=== PATIENT | female | born 1970 | race Caucasian/White ===

== ENCOUNTER → 2019-11-15 13:22 | Outpatient (CLI) | payer OTHER, SELFPAY ==
--- NOTE | ~2019-11-15 | MM_ITS ---
EXAMINATION: MM screening mg BI w jung HISTORY: Screening mammogram TECHNIQUE: Craniocaudal and mediolateral oblique 3-D tomosynthesis images were obtained and synthetic 2-D images were generated. CAD analysis was submitted and interpreted. COMPARISON: No prior mammogram is available for comparison at this institution. BREAST PARENCHYMAL COMPOSITION: The breasts are heterogeneously dense, which may obscure small masses . FINDINGS: There is no evidence of suspicious mass, calcification, or architectural distortion to sugg est malignancy in either breast. 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 IMPRESSION: 1. No mammographic evidence of malignancy. 2. Recommend routine screening mammography in one year. BI-RADS Category 2: Benign finding(s). Reviewed, dictated and finalized at location A. 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
--- NOTE | ~2019-11-15 | DEXA_ITS ---
Bone Density Report Name: Junior Smalls Age: 49 Sex: Female Ethnicity: White Date of : 1970 Indication: postmenopausal; screening for osteoporosis; hysterectomy; Referring Provider: SHREYAZACK Study: Bone densitometry was performed. Exam Date: November 15, 2019 Accession number: [id number] Bone Density: Region BMD T-score Z-score Classification AP Spine (L1-L4) 1.194 1.3 2.1 Normal Femoral Neck (Left) 0.893 0.4 1.2 Normal Total Hip (Left) 1.094 1.2 1.7 Normal Femoral Neck (Right) 0.991 1.3 2.1 Normal Total Hip (Right) 1.079 1.1 1.6 Normal Total Hip Mean 1.087 1.2 1.7 Normal World Health Organization criteria for BMD impression classify patients as: Normal (T-score at or above -1.0), Osteopenia (T-score between -1.0 and -2.5), or Osteoporosis (T-score at or below -2.5). 10-year Fracture Risk: FRAX not reported because: All T-scores for Spine Total, Hip Total, Femoral Neck at or above -1.0 Clinical Information Provided by Patient: Has the following medical conditions: Hysterectomy Patient maximum height was 59.5 Menopause Age: 41 No regular weight bearing exercise Drinks caffeinated beverages Onset of menses at age 11 Number of children 2 Impression: The patient has normal bone mass. Discussion: BONE DENSITY IS ABOVE THE MINIMUM DESIRABLE LEVEL AT ALL SKELETAL SITES TESTED. This patient?s bone mineral density is above the minimum desirable level (T-score -1.0 or better) at all sites measured. The patient should follow a healthful lifestyle (good nutrition with adequate calcium and vitamin D, and appropriate weight-bearing exercise). Follow-Up: Consider repeating this study in 5 years or sooner if there is some new clinical indication. Reported by: [facility] on 11/15/2019 1:56:00 PM. Reviewed, dictated and finalized at location AAnna [facility]
== END ==
PROVIDERS: PCP Nurse Practitioner Adult Health; Visit Provider Nurse Practitioner Adult Health
DX: Z12.31 Encounter for screening mammogram for malignant neoplasm of breast (principal); Z13.820 Encounter for screening for osteoporosis; Z78.0 Asymptomatic menopausal state; Z90.710 Acquired absence of both cervix and uterus
CPT/HCPCS: 77063; 77067; 77080

== ENCOUNTER 2023-02-28 09:21 | Emergency (ER) | payer OTHER, SELFPAY ==
[2023-02-28 09:32] VITALS: BP 132/70; PULSE 66; RESP 16; TEMP 37.3; O2SAT 97
--- NOTE | 2023-02-28 09:57 | ED.URI ---
HPI - URI/Sore Throat General Chief Complaint: Upper Respiratory Infection Stated Complaint: headache; sinus pressure; cough; sore throat Time Seen by Provider: 02/28/23 10:33 Source: patient and RN notes reviewed Mode of arrival: ambulatory Limitations: no limitations History of Present Illness HPI Narrative: 53-year-old female presents with concern for 5 day history of productive persistent cough, ear pain, facial pain, teeth pain, rib pain from coughing. Reports she has been taking Mucinex and Robitussin. Reports room chest and called the cough down little bit. MD elicited complaint: cough and sinus pain Related Data Home Medications Medication Instructions Recorded Confirmed cetirizine 10 mg tablet 10 mg PO DAILY 10/23/22 01/22/23 escitalopram oxalate 20 mg tablet 20 mg PO DAILY 10/23/22 01/22/23 Allergies Allergy/AdvReac Type Severity Reaction Status Date / Time No Known Allergies Allergy Verified 02/28/23 10:03 Review of Systems Review of Systems: CONSTITUTIONAL: Denies malaise, chills, sweats, or fever. EYES: Denies visual changes, redness, or discharge. ENT: Reports rhinorrhea, congestion, sinus pain, otalgia CARDIOVASCULAR: Denies chest pain, palpitations, or edema. RESPIRATORY: Reports persistent productive cough. Denies dyspnea. GASTROINTESTINAL: Denies abdominal pain, nausea, vomiting, diarrhea SKIN: Denies rash or itching. MUSCULOSKELETAL: Denies myalgia. Reports rib pain from coughing NEUROLOGIC: Denies headache. All systems reviewed & are unremarkable except as noted in HPI and below PMFSH Past Medical History Medical History Allergies Anxiety delivery delivered Irritable bowel syndrome with constipation Lichen planus Obstructive sleep apnea on CPAP Surgical History Surgical History Hx of hysterectomy (~2010) Family History Family History Father Alcohol abuse Diabetes mellitus Hypertension Cerebrovascular accident Mother Diabetes mellitus Skin cancer Sibling Alcohol abuse Asthma Diabetes mellitus Hypertension Grandparent Breast cancer Social History Social History Social History: Junior is . 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 There is no relevant family history pertinent to the presenting complaint Exam Narrative: GENERAL: Nontoxic-appearing and in no acute distress. HEAD: Normocephalic EYES: PERRLA, conjunctivae clear ENT: Nares clear, turbinates edematous and erythematous, sinus tenderness. Mucous membranes moist. Left tM pearly luevano with dull light reflex, right TM erythematous; no tragal tenderness. Oropharynx not erythematous without lesions. Tonsils not enlarged and without exudate, no drooling, no hoarseness, no trismus, uvula midline. NECK: Supple. No lymphadenopathy CHEST: Scattered wheeze, otherwise clear to auscultation, br
== END 2023-02-28 10:43 | disposition home or self-care (01) ==
PROVIDERS: Emergency Provider Nurse Practitioner; PCP Family Medicine
DX: H66.90 Otitis media, unspecified, unspecified ear (principal); J40 Bronchitis, not specified as acute or chronic
CPT/HCPCS: 99213; G0463

== ENCOUNTER 2023-03-03 14:45 | Outpatient (RCR) | payer OTHER, SELFPAY ==
[2023-02-03 10:58] VITALS: BMI 50.0
[2023-03-03 14:45] VITALS: BMI 49.2
[2023-03-03 14:51] VITALS: BMI 49.2
== END 2023-05-03 10:25 | disposition home or self-care (01) ==
LOC: ANHDMC 14:45
PROVIDERS: PCP Family Medicine; Visit Provider Nurse Practitioner Family
DX: Z68.43 Body mass index [BMI] 50.0-59.9, adult (principal); Z71.3 Dietary counseling and surveillance
CPT/HCPCS: 97802; 97803

== ENCOUNTER 2024-08-04 09:11 | Outpatient (CLI) | payer OTHER, SELFPAY ==
[2024-08-07 10:36] LABS: Kit Draw Collected
== END 2024-08-04 09:12 | disposition home or self-care (01) ==
LOC: ANHGOSHLAB 09:12
PROVIDERS: PCP Nurse Practitioner Family; Visit Provider Nurse Practitioner Family
DX: T78.40XA Allergy, unspecified, initial encounter (principal); E88.810 Metabolic syndrome; M45.9 Ankylosing spondylitis of unspecified sites in spine; L43.9 Lichen planus, unspecified; K58.1 Irritable bowel syndrome with constipation
CPT/HCPCS: 36415

== ENCOUNTER 2024-09-25 00:17 | Day surgery (SDC) | payer OTHER, SELFPAY ==
[2024-09-11 10:53] VITALS: BMI 43.0
--- NOTE | 2024-09-25 08:18 | P.PNAN_ITS ---
Anes - Initial Pre Proc Eval Procedure: Operation Date: 09/25/24 10:00 Proposed Procedures p Screening Colonoscopy - Hudson Schroeder DO Date/Time: 09/25/24 08:18 Surgeon: Hudson Schroeder DO Pre Op Diagnosis: Screening for malignant neoplasm of colon Patient Data Age: 54 Gender: F Height: 1.52 m Weight: 99.8 kg Allergies Allergy/AdvReac Type Severity Reaction Status Date / Time No Known Allergies Allergy Verified 09/25/24 08:43 Home Medications ?Medication ?Instructions ?Recorded ?Confirmed ?Type cetirizine 10 mg tablet 10 mg PO DAILY PRN allergy symptoms 10/23/22 09/25/24 History fluticasone propionate 50 1 spray intranasal DAILY #16 grams 07/23/23 09/25/24 Rx mcg/actuation nasal spray,suspension (Flonase Allergy Relief) levothyroxine 50 mcg tablet 50 mcg PO DAILY #30 tabs 07/23/23 09/25/24 Rx albuterol sulfate 90 mcg/actuation 2 puff inhalation QID PRN 07/27/23 09/11/24 Rx aerosol inhaler shortness of breath or wheezing #8.5 grams conjugated estrogens 0.625 mg/gram 0.625 mg vaginal 2XW #30 grams 01/28/24 09/11/24 Rx vaginal cream cyclobenzaprine 5 mg tablet 5 mg PO DAILY 01/28/24 09/11/24 History melatonin 3 mg capsule 6 mg PO QHS 01/28/24 09/25/24 History wkhuqvvy-ajk-lrybv ac 400 1 tablet PO DAILY 01/28/24 09/25/24 History mcg-calcium carb 500 mg-vit K1 20 mcg tablet escitalopram oxalate 20 mg tablet 20 mg PO DAILY #90 tabs 04/06/24 09/25/24 Rx oxybutynin chloride 5 mg 5 mg PO DAILY #90 tabs 05/01/24 09/25/24 Rx tablet,extended release 24 hr diclofenac sodium 75 mg 75 mg PO BID #180 tabs 07/31/24 09/25/24 Rx tablet,delayed release omeprazole 40 mg capsule,delayed 40 mg PO DAILY #90 caps 07/31/24 09/25/24 Rx release alprazolam 0.25 mg tablet 0.25 mg PO TID PRN anxiety #20 tabs 08/04/24 09/25/24 Rx semaglutide 1 mg/dose (4 mg/3 mL) 1.75 mg subcut WEEKLY 09/11/24 09/11/24 History subcutaneous pen injector (Ozempic) Patient hx anesthesia problems: none Family hx anesthesia problems: none Results Review: All pre-operative results and documents have been reviewed as part of the pre- operative evaluation. [facility] Past Medical History Medical History (Updated 09/25/24 @ 08:19 by Blaze Novak DO) Insulin resistance Lichen planus Irritable bowel syndrome with constipation Obstructive sleep apnea on CPAP delivery delivered Anxiety Allergies Surgical History Surgical History Hx of hysterectomy (~2010) Family History Family History Father Alcohol abuse Diabetes mellitus Hypertension Cerebrovascular accident Mother Diabetes mellitus Skin cancer Sibling Alcohol abuse Asthma Diabetes mellitus Hypertension Grandparent Breast cancer Social History Social History Social History: Junior is . 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 Smoking status: Never smoker Alcohol intake: never Substance use: never Substance use type: does not use Do You Feel Safe in your Home?: Yes Lack of Transportation: No Lack of Food: Never True Current Housing: I Have Housing Concerned About Future Housing: No Difficulty Paying Gas/Electric Bills: No Difficulty Paying for Meds: No Currently Unemployed: No Education: Associate Degree Difficulty w/ Childcare or Family Care: No Living arrangements: with family Additional living arrangements comments: Occupation/Education: occupation Additional occupation/education comments: [employer] Gender identity (if verbalized by the patient): Female Sexual Orientation (if Verbalized by the Patient): Straight or Heterosexual Spiritual care concerns: No Agree to blood products: Yes Anes - Eval Final PreProcedure Day of Procedure 09/25/24 08:18 Patient weight: morbidly obese Heart: regular rate and rhythm Lungs: clear to auscultation Airway: Mallampati scale class II Neurological: alert and oriented Last oral intake: >/= 8 hours ASA classification: III Emergent: no Anesthetic plan: proceed Anesthesia type and monitoring: general GIVS and standard monitoring Results Review: All pre-operative results and documents have been reviewed as part of the pre- operative evaluation. Informed Consent: The patient's anesthetic plan and its attendant risks and benefits were discussed with the patient/family/POA. Questions were solicited and answers provided to the satisfaction of the patient/family/POA.
[2024-09-25 08:46] VITALS: BP 132/82; PULSE 76; RESP 16; TEMP 35.6; O2SAT 97
[2024-09-25] MEDS: LACTATED RINGERS 1,000 ML 150 ML IV CONT (09:23)
--- NOTE | 2024-09-25 09:37 | PM.IMHP ---
H&P: HPI History of Present Illness Date/Time: 09/25/24 09:37 Chief Complaint: screening for colorectal cancer Narrative: this is a 54-year-old woman who presents for colonoscopy. Her last colonoscopy was 10 years ago. She denies any hematochezia or melena. She denies family history of colon cancer. Review of Systems Review of Systems: All systems reviewed & are unremarkable except as noted in HPI and below Constitutional: Constitutional: Denies chills, Denies fever(s), Denies headache(s) and Denies weight loss Eyes: Eyes: Denies change in vision ENT: Denies dizziness, Denies headache(s), Denies neck mass and Denies throat swelling Cardiovascular: Cardiovascular: Denies chest pain, Denies lightheadedness and Denies dyspnea Respiratory: Respiratory: Denies cough, Denies dyspnea and Denies wheezing Gastrointestinal: Gastrointestinal: Denies abdominal pain, Denies change in bowel habits, Denies nausea and Denies vomiting Genitourinary: Genitourinary: Denies hematuria and Denies dysuria Musculoskeletal: Musculoskeletal: Reports as per HPI Integumentary/Breasts: Skin/Breast: Reports as per HPI Neurologic: Denies dizziness and Denies headache(s) Allergic/Immunologic: Allergic/Immunologic: Denies throat swelling and Denies wheezing [facility] Past Medical History Medical History (Updated 09/25/24 @ 09:38 by Hudson Schroeder DO) Insulin resistance Lichen planus Irritable bowel syndrome with constipation Obstructive sleep apnea on CPAP delivery delivered Anxiety Allergies Surgical History Surgical History Hx of hysterectomy (~2010) Family History Family History Father Alcohol abuse Diabetes mellitus Hypertension Cerebrovascular accident Mother Diabetes mellitus Skin cancer Sibling Alcohol abuse Asthma Diabetes mellitus Hypertension Grandparent Breast cancer Social History Social History Social History: Junior is . 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 Gender identity (if verbalized by the patient): Female Sexual Orientation (if Verbalized by the Patient): Straight or Heterosexual Spiritual care concerns: No Agree to blood products: Yes Meds Home Medications and Allergies Home Medications ?Medication ?Instructions ?Recorded ?Confirmed ?Type cetirizine 10 mg tablet 10 mg PO DAILY PRN allergy symptoms 10/23/22 09/25/24 History fluticasone propionate 50 1 spray intranasal DAILY #16 grams 07/23/23 09/25/24 Rx mcg/actuation nasal spray,suspension (Flonase Allergy Relief) levothyroxine 50 mcg tablet 50 mcg PO DAILY #30 tabs 07/23/23 09/25/24 Rx albuterol sulfate 90 mcg/actuation 2 puff inhalation QID PRN 07/27/23 09/11/24 Rx aerosol inhaler shortness of breath or wheezing #8.5 grams conjugated estrogens 0.625 mg/gram 0.625 mg vaginal 2XW #30 grams 01/28/24 09/11/24 Rx vaginal cream cyclobenzaprine 5 mg tablet 5 mg PO DAILY 01/28/24 09/11/24 History melatonin 3 mg capsule 6 mg PO QHS 01/28/24 09/25/24 History zaegjmyo-jqt-obpkn ac 400 1 tablet PO DAILY 01/28/24 09/25/24 History mcg-calcium carb 500 mg-vit K1 20 mcg tablet escitalopram oxalate 20 mg tablet 20 mg PO DAILY #90 tabs 04/06/24 09/25/24 Rx oxybutynin chloride 5 mg 5 mg PO DAILY #90 tabs 05/01/24 09/25/24 Rx tablet,extended release 24 hr diclofenac sodium 75 mg 75 mg PO BID #180 tabs 07/31/24 09/25/24 Rx tablet,delayed release omeprazole 40 mg capsule,delayed 40 mg PO DAILY #90 caps 07/31/24 09/25/24 Rx release alprazolam 0.25 mg tablet 0.25 mg PO TID PRN anxiety #20 tabs 08/04/24 09/25/24 Rx semaglutide 1 mg/dose (4 mg/3 mL) 1.75 mg subcut WEEKLY 09/11/24 09/11/24 History subcutaneous pen injector (Ozempic) Allergies Allergy/AdvReac Type Severity Reaction Status Date / Time No Known Allergies Allergy Verified 09/25/24 08:43 Vital Signs Vital Signs - 24 hr 09/25/24 08:46 Temperature 96.1 F L Pulse Rate 76 Respiratory Rate 16 Blood Pressure 132/82 Pulse Oximetry 97 Oxygen Delivery Room Air Exam Const: General: no acute distress and alert Orientation/consciousness: patient oriented x3 HENMT: Head: normocephalic and atraumatic Ears: hearing grossly normal bilaterally Face/Nose/Sinus: Normal nares present Mouth: Yes Normal oral and palatal mucosa present Eyes: Periorbital: periorbital findings normal Sclera: sclerae normal EOM: EOMs intact bilaterally Neck: Neck: normal visual inspection, no lymphadenopathy and trachea midline Chest: Chest palpation & inspection: normal inspection of the chest Resp: Effort & Inspection: normal respiratory effort Auscultation: clear to auscultation bilaterally Cardio: Jugular venous distension: no JVD Rate: regular rate Rhythm: regular rhythm Heart sounds: S1 normal heart sound present and S2 normal heart sound present Peripheral pulses: Peripheral pulses 2+ throughout GI: Inspection: normal to inspection GI Palp: Yes Soft to palpation, No Tenderness to palpation present (GI), No Guarding due to palpation present (GI) and No Rebound tenderness present Percussion: Yes normal to percussion Auscultation: normal bowel sounds : General: Yes no CVA tenderness Back/Spine/Pelvis: Back: no CVA tenderness Neuro: General: patient oriented x3, no focal motor deficits and CN's II-XI intact bilaterally Cognition (Neuro): normal cognition Speech: normal speech Motor exam (neuro): 5/5 motor strength present throughout Extrem: General: capillary refill normal and no clubbing, cyanosis or edema Assessment and Plan Assessment and plan (1) Screening for colorectal cancer: Code(s): Z12.11 - Encounter for screening for malignant neoplasm of colon; Z12.12 - Encounter for screening for malignant neoplasm of rectum Status: Acute Assessment and Plan: I have recommended colonoscopy. I have discussed the procedure, risks, benefits, and alternatives. Questions were answered. Patient is agreeable to proceed.
[2024-09-25 09:58] VITALS: BP 100/59; PULSE 65; RESP 20; O2SAT 96
[2024-09-25 10:08] VITALS: BP 97/67; PULSE 65; RESP 20; O2SAT 97
[2024-09-25 10:18] VITALS: BP 116/63; PULSE 60; RESP 20; O2SAT 97
== END 2024-09-25 10:31 | disposition home or self-care (01) ==
PROVIDERS: PCP Nurse Practitioner Family; Visit Provider Surgery
PROC: 0DJD8ZZ Inspection of Lower Intestinal Tract, Via Natural or Artificial Opening Endoscopic (ICD-10-PCS; CPT 45378; principal; 2024-09-25 10:00)
DX: Z12.11 Encounter for screening for malignant neoplasm of colon (principal); K58.1 Irritable bowel syndrome with constipation; F41.9 Anxiety disorder, unspecified; G47.33 Obstructive sleep apnea (adult) (pediatric); E88.819 Insulin resistance, unspecified; L43.9 Lichen planus, unspecified; E66.01 Morbid (severe) obesity due to excess calories; Z68.42 Body mass index [BMI] 45.0-49.9, adult; Z79.51 Long term (current) use of inhaled steroids; Z79.85 Long-term (current) use of injectable non-insulin antidiabetic drugs; Z99.89 Dependence on other enabling machines and devices; Z98.890 Other specified postprocedural states; Z84.0 Family history of diseases of the skin and subcutaneous tissue; Z80.3 Family history of malignant neoplasm of breast; Z82.49 Family history of ischemic heart disease and other diseases of the circulatory system
CPT/HCPCS: 45378; J2003; J2704; J7120

== ENCOUNTER 2025-02-22 15:10 | Outpatient (CLI) | payer OTHER, SELFPAY ==
--- NOTE | ~2025-02-22 | MM_ITS ---
EXAMINATION: MM screening [facility] BI w jung HISTORY: Screening TECHNIQUE: Craniocaudal and mediolateral oblique 3-D tomosynthesis images were obtained and synthetic 2-D images were generated. CAD analysis was submitted and interpreted. COMPARISON: 11/15/2019 BREAST PARENCHYMAL COMPOSITION: Not dense: There are scattered areas of fibroglandular density. FINDINGS: Stable benign-appearing mass lower inner quadrant of the left breast. There is no evidence of suspicious mass, calcification, or architectural distortion to suggest malignancy in either breast . There has been no suspicious interval change. IMPRESSION: 1. No mammographic evidence of malignancy. 2. Recommend routine screening mammography in one year. BI-RADS Category 1: Negative Reviewed, dictated and finalized at location A.
--- OUTSIDE RECORDS SUMMARY | 2025-02-22 15:13 | XMS_ITS | Clinical Summary ---
Author Organization [facility] [employer] Address [address] 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 This disclosure is being madepursuant to the Care Everywhere program and may not contain all information available regarding this patient. Last updated 18.[facility] [employer] Allergies No known active allergies Medications * Be aware that medications may not be up to date on this document. Alwaysverify current medications with the patient. 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 Dyslipidemia 11/10/2021 Vitamin B12 deficiency (non anemic) 11/10/2021 Obstructive sleep apnea syndrome 03/24/2021 Mixed anxiety and depressive disorder 10/10/2019 Resolved Problems Problem Noted Date Diagnosed Date Resolved Date Lichen sclerosus et atrophicus of the vulva 11/17/2021 06/18/2022 Family History Medical History Relation Name Comments CVA Father Diabetes - Type 2 Father Diabetes - Type 2 Mother Relation Name Status Comments Father Alive Mother Alive Social History Tobacco Use Types Packs/Day Years Used Date Smoking Tobacco: Never Smokeless Tobacco: Never Alcohol Use Standard Drinks/Week Comments Yes 0 (1 standard drink = 0.6 oz pur e alcohol) Comments No Sex and Gender Information Value Date Recorded Sex Assigned at Not on file 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 Gender Identity Not on file Sexual Orientation Not on file Last Filed Vital Signs Vital Sign Reading Time Taken Comments Blood Pressure 108/68 06/18/2022 9:47 AM CDT Pulse - - Temperature 36.2 C (97.2 F) 06/18/2022 9:47 AM CDT Respiratory Rate - - Oxygen Saturation - - Inhaled Oxygen Concentration - - Weight 106.4 kg (234 lb 9.6 oz) 06/18/2022 9:47 AM CDT Height 152.4 cm (5') 06/18/2022 9:47 AM CDT Body Mass Index 45.82 06/18/2022 9:47 AM CDT Plan of Treatment Health Maintenance Due Date Last Done Comments COLOGUARD (AGES 45-75) - COL ON CA SCREENING 1970 COLON MONITORING 1969 COLONOSCOPY - COLON CA SCREENING 1969 CT COLONOGRAPHY - COLON CA SCREENING 1970 Colorectal Cancer Screening 1970 FIT - COLON CA SCREENING 1969 FLEX SIG - COLON CA SCREENING 1969 LIPID TESTING 1970 MAMMOGRAM 1970 HIV SCREENING 02/20/1984 HEPATITIS C SCREENING 02/15/1987 DTAP/TDAP/TD VACCINES (1 - Tdap) 02/20/1988 HEPATITIS B VACCINE (1 of 3 - 19+ 3-dose series) 02/20/1988 PNEUMOCOCCAL VACCINE 50+ (1 of 1 - PCV) 2019 ZOSTER VACCINE (1 of 2) 2019 SCREENING FOR DIABETES 07/14/2021 COVID-19 VACCINE (1 2023-2 5 season) 2024 DEPRESSION SCREENING 09/27/2024 INFLUENZA VACCINE (Season Ended) 2025 HIB VACCINE Aged Out No longer eligi ble based on patient's age to complete this topic HPV VACCINE Aged Out No longer eligi ble based on patient's age to complete this topic MENINGOCOCCAL (Group B) VACC INE SHARED DECISION-MAKING Aged Out No longer eligibl e based on patient's age to complete this topic MENINGOCOCCAL GROUPS A/C/Y/W VACCINE Aged Out No longer eligible b ased on patient's age to complete this topic Insurance SYSTEM[employer] Member Subscriber Plan / Payer (Ef fective 2019-Present) Name:Kaylene Smalls Relation to Subscriber:Self Name:KAYLENE SMALLS Payer ID:Not on file Type:PPO Address: [place] [id number] [employer] Care 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
== END 2025-02-22 15:11 | disposition home or self-care (01) ==
LOC: ANHIMG 15:12
PROVIDERS: PCP Nurse Practitioner Family; Visit Provider Nurse Practitioner Family
DX: Z12.31 Encounter for screening mammogram for malignant neoplasm of breast (principal)
CPT/HCPCS: 77063; 77067